=== PATIENT | female | born 1960 | race African-American/Black ===

== ENCOUNTER 2022-03-19 17:02 | Inpatient (IN) | payer OTHER ==
[~2022-03-19] VITALS: Ht 167.6 cm; Wt 60.8 kg
[2022-03-19] MEDS ORDERED: IV NORMAL SALINE 1000 ML BAG IV ONE (17:15)
[2022-03-19] MEDS ORDERED: ACETAMINOPHEN ES 500 MG TABLET PO ONE (17:15)
[2022-03-19] MEDS ORDERED: ACETAMINOPHEN ES 500 MG TABLET ONE (17:24)
[2022-03-19 17:45] LABS: HEMATOCRIT 38.7 % (31.2-41.9); MEAN CORPUSCULAR HEMOGLOBIN 26.4 uug (24.7-32.8); MEAN CORPUSCULAR VOLUME 80.5 fL (75.5-95.3); PLATELET COUNT (AUTO) 176 K/uL (179-408)
[2022-03-19 17:55] LABS: CARBON DIOXIDE 29 mmol/L (21-32); CHLORIDE 94 mmol/L (98-107); CREATININE 1.1 mg/dL (0.6-1.3); POTASSIUM 3.3 mmol/L (3.5-5.1); UREA NITROGEN, BLOOD 14 mg/dL (7-18)
[2022-03-19 18:00] LABS: GLUCOSE 301 mg/dL (74-106)
[2022-03-19 18:09] LABS: ALANINE AMINOTRANSFERASE 19 U/L (14-59); ALKALINE PHOSPHATASE 105 U/L (50-136); ASPARTATE AMINOTRANSFERASE 6 U/L (15-37); BILIRUBIN,DIRECT 0.1 mg/dL (0.0-0.2); BILIRUBIN,TOTAL 0.5 mg/dL (0.2-1.0)
--- NOTE | 2022-03-19 19:12 | NUR ---
Received report from REZA Del Castillo.
[2022-03-19] MEDS ORDERED: CEFTRIAXONE 1 G in IV DEXTROSE 5% 50 ML IV ONE (19:15)
[2022-03-19] MEDS ORDERED: POTASSIUM BICARBONATE/CIT AC 25 MEQ TABLET.EFF PO ONE (19:15)
[2022-03-19] MEDS ORDERED: AZITHROMYCIN IV 500 MG in IV DEXTROSE 5% 250 ML IV ONE (19:15)
[2022-03-19] MEDS ORDERED: CEFTRIAXONE /D5W 50ML IVPB **ER PYXIS IV ONE (19:18)
[2022-03-19] MEDS ORDERED: AZITHROMYCIN 500MG/ D5W 250ML IVPB **ER PYXIS ONLY IV ONE (19:18)
[2022-03-19] MEDS ORDERED: POTASSIUM BICARBONATE/CIT AC 25 MEQ TABLET.EFF ONE (19:18)
[2022-03-19] MEDS ORDERED: IV NS 1000 ML 1,000 ML IV ONE (19:30)
--- NOTE | 2022-03-19 19:34 | NUR ---
The compleetion time for 1st L of NS given at 1721 is not documented because it was completed before my shift.
--- NOTE | 2022-03-19 21:05 | NUR ---
Spoke to Lin, trimming caser from [employer], she stated that patient is authorized to stay at [facility].
--- NOTE | 2022-03-19 21:09 | NUR ---
Called [facility] for panal call. Dr. Richard home school liaison officer.
[2022-03-19] MEDS ORDERED: DEXTROSE 50% 50 ML DISP.SYRIN IV PRN (21:15)
[2022-03-19] MEDS ORDERED: REMEDY ESSENTIAL ZINC PASTE 113 GM TP PRN (21:15)
[2022-03-19] MEDS ORDERED: ONDANSETRON 4 MG/2 ML VIAL IV PRN (21:15)
[2022-03-19] MEDS ORDERED: MAGNESIUM HYDROXIDE 30 ML LIQUID UDC PO PRN (21:15)
[2022-03-19] MEDS ORDERED: INSU100V39 SQ (21:16)
[2022-03-19] MEDS ORDERED: GABA800T11 PO (21:16)
[2022-03-19] MEDS ORDERED: OXYCODONE/APAP 5-325 MG TABLET ONE (21:42)
[2022-03-19] MEDS ORDERED: MAGNESIUM SULFATE/D5W 100 ML ONE (21:43)
[2022-03-19] MEDS ORDERED: MAGNESIUM SULFATE/D5W 300 ML ONE (21:43)
[2022-03-19] MEDS: MAGNESIUM SULFATE/D5W 100 ML IV SCH ×4 (21:45→23:45)
[2022-03-19] MEDS ORDERED: OXYCODONE/APAP 5-325 MG TABLET PO ONE (21:45)
[2022-03-19 22:07] LABS: *BILIRUBIN,URIN NEGATIVE (NEGATIVE); *BLOOD, URINE 2+ (NEGATIVE); *CLARITY,URINE CLOUDY (CLEAR); *COLOR,URINE YELLOW (YELLOW); *KETONES,URINE 1+ (NEGATIVE); *UROBILINOGEN,URINE 0.2 E.U./dl (NORMAL); LEUKOCYTE ESTERASE ,URINE 3+ (NEGATIVE); NITRITE, URINE NEGATIVE (NEGATIVE)
[2022-03-19 22:23] LABS: UGLUCOSE 3+ (NEGATIVE)
--- NOTE | 2022-03-19 23:19 | NUR ---
Report given to REZA Lopes.
[2022-03-19] MEDS ORDERED: ENOXAPARIN SODIUM 40 MG/0.4 ML DISP.SYRIN SQ ONE (23:54)
--- NOTE | 2022-03-20 00:03 | NUR ---
RECEIVED REPORT FROM AM NURSE MIKAELA PT IS ALERT AND ORIENTED X4 HAS AN IV 20G RT HAND DR HURD ORDERED NS AT 75M;/HR PT TOLERATING WELL NO SIGNS OF INFILTRATION NOTED. PT HAS 022L NC SAT AT 99%. PT HAS MEDICATION ORDERED BUT HAS A SLIGHT TEMPERATURE OF 100.4 GAVE 2 TABS OF TYLENOL. PT PLATELETS ARE LOW 176 AND PT DENIES BUT PT HAS SPOTS ALONG WITH SCABS ALL OVER HER BODY AND SCABS ON .ARMS LEGS AND LEFT KNEE. PT HAS AM LABS ORDERED. PT HAS OVER $600 DOLLARS IN [place] BUT DECIDED TO KEEP WITH HER WILL GIVE TO HER SON IN THE MORNING.
--- NOTE | 2022-03-20 00:15 | NUR ---
Pt. admitted to TELE RM 330, under care of Dr. Richard. Belongs List completed REZA Cottrell aware of patient's arrival to unit.
[2022-03-20 00:36] LABS: BACTERIA,URINE MODERATE /HPF (NONE SEEN); SQUAMOUS EPITHELIAL CELL,UR MODERATE /HPF (NONE SEEN); WBC,URINE TNTC /HPF (0-3)
[2022-03-20 00:46] VITALS: BP 109/65
[2022-03-20] MEDS: IV NS 1000 ML 1,000 ML IV PRN ×2 (02:57→14:33)
[2022-03-20 04:05] VITALS: BP 150/68
[2022-03-20] MEDS: ACETAMINOPHEN 325 MG TABLET PO PRN ×2 (05:55→20:55)
[2022-03-20] MEDS ORDERED: BENZOCAINE/MENTH/CETYLPYRD LOZENGE MM PRN (06:30)
[2022-03-20] MEDS: PANTOPRAZOLE SODIUM 40 MG TABLET.DR PO SCH (07:03)
[2022-03-20] MEDS: GUAIFENESIN/DEXTROMETHORPHAN 5 ML UDC PO PRN ×2 (07:04→23:15)
[2022-03-20 07:15] LABS: HEMATOCRIT 31.4 % (31.2-41.9); MEAN CORPUSCULAR HEMOGLOBIN 26.3 uug (24.7-32.8); PLATELET COUNT (AUTO) 150 K/uL (179-408)
[2022-03-20] MEDS: BLOOD SUGAR DIAGNOSTIC 1 EACH STRIP VI SCH ×4 (07:20→21:00)
[2022-03-20 07:50] LABS: CREATININE 0.9 mg/dL (0.6-1.3); MAGNESIUM 2.1 mg/dL (1.8-2.4); PHOSPHOROUS 1.9 mg/dL (2.5-4.9); POTASSIUM 3.3 mmol/L (3.5-5.1)
[2022-03-20] MEDS: INSULIN REGULAR, HUMAN 300 UNIT/3 ML VIAL SQ PRN ×4 (08:13→22:55)
--- NOTE | 2022-03-20 08:16 | NUR ---
RECEIVED PATIENT IN BED AWAKE ALERT AND ORIENTED DENIES PAIN OR DISCOMFORTS AT THIS TIME TEMP RECHECKED AND ITS 99.5 INSULIN COVERAGE PER SLIDING SCALE DENIES DISCOMFORTS CALL LIGHTS AND PERSONAL BELONGINGS ARE WITHIN EASY REACH AT THIS TIME WILL CONTINUE TO OBSERVE.
[2022-03-20] MEDS ORDERED: AZITHROMYCIN IV 500 MG in IV DEXTROSE 5% 250 ML IV SCH (09:00)
[2022-03-20] MEDS ORDERED: CEFTRIAXONE 1 G in IV DEXTROSE 5% 50 ML IV SCH (09:00)
[2022-03-20] MEDS ORDERED: POTASSIUM CHLORIDE 20 MEQ TAB.PRT.SR PO ONE (09:45)
--- NOTE | 2022-03-20 10:06 | NUR ---
POTASSIUM LEVEL IS 3.3 WITH REPLACEMENT ORDER AND NOTED
[2022-03-20] MEDS ORDERED: CHLO25TA2 PO (11:22)
[2022-03-20] MEDS ORDERED: PARO40TA4 PO (11:22)
[2022-03-20] MEDS ORDERED: ZOLP5TAB8 PO (11:22)
[2022-03-20] MEDS ORDERED: METO50TA16 PO (11:22)
[2022-03-20] MEDS ORDERED: BACL10TA PO (11:22)
[2022-03-20] MEDS ORDERED: INSU100I4 SQ (11:22)
[2022-03-20 11:39] VITALS: BP 102/57
[2022-03-20] MEDS ORDERED: INSU100I19 SQ (11:48)
[2022-03-20] MEDS: GABAPENTIN 400 MG CAPSULE PO SCH ×2 (12:57→16:12)
[2022-03-20 15:43] VITALS: BP 121/66
[2022-03-20] MEDS ORDERED: SODIUM PHOSPHATE MM 15 MMOL in IV NORMAL SALINE 250 ML IV ONE (16:00)
--- NOTE | 2022-03-20 18:06 | NUR ---
SODIUM PHOS IN PROGRESS ORDERED DENIES PAIN OR DISCOMFORTS NOT IN DISTRESS AT THIS TIME.
[2022-03-20] MEDS: CEFTRIAXONE 1 G in IV DEXTROSE 5% 50 ML IV SCH (20:38)
[2022-03-20] MEDS: AZITHROMYCIN IV 500 MG in IV DEXTROSE 5% 250 ML IV SCH (20:38)
[2022-03-20] MEDS: ENOXAPARIN SODIUM 40 MG/0.4 ML DISP.SYRIN SQ SCH ×2 (20:40)
[2022-03-20 21:05] VITALS: BP 119/65
[2022-03-20] MEDS: INSULIN GLARGINE,HUM 300 UNITS/3 ML CARTRIDGE SQ SCH (22:57)
[2022-03-20] MEDS ORDERED: HYDROMORPHONE 1 MG/1 ML DISP.SYRIN IV PRN (23:00)
[2022-03-21 00:30] VITALS: BP 114/50
[2022-03-21 04:10] VITALS: BP 135/75
[2022-03-21] MEDS: BLOOD SUGAR DIAGNOSTIC 1 EACH STRIP VI SCH ×4 (06:20→20:49)
[2022-03-21] MEDS: INSULIN REGULAR, HUMAN 300 UNIT/3 ML VIAL SQ PRN ×4 (06:21→20:45)
[2022-03-21] MEDS: PANTOPRAZOLE SODIUM 40 MG TABLET.DR PO SCH (06:49)
[2022-03-21 07:32] LABS: HEMATOCRIT 32.5 % (31.2-41.9); MEAN CORPUSCULAR HEMOGLOBIN 26.5 uug (24.7-32.8); MEAN CORPUSCULAR VOLUME 81.3 fL (75.5-95.3); PLATELET COUNT (AUTO) 142 K/uL (179-408)
--- NOTE | 2022-03-21 07:45 | NUR ---
SHIFT NOTES; RECEIVED REPORT AM NURSE PT IS ALERT AND ORIENTED X4 PT WAS CRYING DURING SHIFT CALLED DR SALEH ORDERED .5MG DILAUDID Q4H NO SIGNS OF DISTRESS NOTED MEDICATION GIVEN FOR PAIN PT SLEPT AFTERWARD. PT AM BLOOD SUGAR 124 NO SIGNS OF DIABETIC REACTION NO COVERAGE REQUIRED. PT HS BLOOD IS 261 GAVE 30 UNITS LANTUS AND 6 UNITS REG NO SIGNS OF ADVERSE REACTION NOTED. PT WAS GIVEN GIVEN COUGH SYRUP FOR COUGH PT PLT ARE LOW 150 FROM 176 MEDICATION HELD LOVENOX. WILL ENDORSE TO AM NURSE. FALL AND SAFETY MAINTAINED WILL CONTINUE TO MONITOR.
[2022-03-21 07:56] LABS: BILIRUBIN,TOTAL 0.2 mg/dL (0.2-1.0); CREATININE 0.7 mg/dL (0.6-1.3); POTASSIUM 3.5 mmol/L (3.5-5.1); TOTAL PROTEIN, SERUM 6.9 g/dL (6.4-8.2)
[2022-03-21] MEDS: GUAIFENESIN/DEXTROMETHORPHAN 5 ML UDC PO PRN (08:08)
[2022-03-21] MEDS: GABAPENTIN 400 MG CAPSULE PO SCH ×3 (09:23→16:52)
[2022-03-21 09:26] LABS: THYROID STIMULATING HORMONE 0.257 mIU/mL (0.358-3.740)
[2022-03-21] MEDS ORDERED: MAGNESIUM HYDROXIDE 30 ML LIQUID UDC PO PRN (09:30)
[2022-03-21] MEDS: ACETAMINOPHEN 325 MG TABLET PO PRN ×2 (10:53→18:34)
[2022-03-21] MEDS: IV NS 1000 ML 1,000 ML IV PRN (10:53)
[2022-03-21] MEDS ORDERED: IPRATROPIUM BROMIDE 0.5 MG/2.5 ML NEBU NEB PRN (11:00)
[2022-03-21] MEDS ORDERED: ALBUTEROL SULFATE 2.5 MG/3 ML NEBU NEB PRN (11:00)
--- NOTE | 2022-03-21 11:18 | NUR ---
DR VERDUZCO HERE TO SEE PATIENT WITH NEW ORDERS AND NOTED
[2022-03-21 12:00] VITALS: BP 157/77
--- NOTE | 2022-03-21 13:12 | NUR ---
PATIENT IS COMPLAINING THAT THE IV ON THE TOP OF RIGHT HANG IS UNCOMFORTABLE ATTEMPT TO INSERT FAILED MD AWARE WITH ORDER TO INSERT MIDLINE AND NOTED
--- NOTE | 2022-03-21 13:14 | NUR ---
MID LINE INSERTED TO HER RIGHT UPPER ARM GAUGE 18 AND CONTINUE WITH IVF ORDERED.
[2022-03-21 16:00] VITALS: BP 109/71
[2022-03-21] MEDS ORDERED: NEUTRA PHOS PACKET PO ONE (17:00)
--- NOTE | 2022-03-21 18:00 | NUR ---
AWAKE ALERT ORIENTED REQUIRES MAX ASSIST FOR ADL ASSISTED WITH BATHING AND CHANGING IVF IN PROGRESS ORDERED MIDLINE REMAINS INTACT MADE COMFORTABLE WILL CONTINUE TO OBSERVE.
[2022-03-21 20:00] VITALS: BP 140/84
[2022-03-21] MEDS: AZITHROMYCIN IV 500 MG in IV DEXTROSE 5% 250 ML IV SCH (20:30)
[2022-03-21] MEDS: ENOXAPARIN SODIUM 40 MG/0.4 ML DISP.SYRIN SQ SCH (20:40)
[2022-03-21] MEDS: INSULIN GLARGINE,HUM 300 UNITS/3 ML CARTRIDGE SQ SCH (20:46)
[2022-03-22] VITALS: BP 146/54
[2022-03-22] MEDS: CEFTRIAXONE 1 G in IV DEXTROSE 5% 50 ML IV SCH ×2 (00:26→20:51)
--- NOTE | 2022-03-22 04:30 | NUR ---
AAOx4 Resting in bed at beginning of shift. All needs attended. VSS No acute distress noted. Tolerated po meds well. OOB to bedside commode. Voiding well without difficulty. VSS. Accucheck @ 2100 was 177. On lantus plus 3units given as coverage. IV ABT's given as scheduled. On 2L via nasal cannula, pulse ox 93%. Patient having on & off cough, Robitussin given.Will monitor patient.
[2022-03-22 05:48] VITALS: BP 166/95
[2022-03-22] MEDS: PANTOPRAZOLE SODIUM 40 MG TABLET.DR PO SCH (06:04)
[2022-03-22] MEDS: BLOOD SUGAR DIAGNOSTIC 1 EACH STRIP VI SCH ×4 (06:33→20:52)
[2022-03-22 07:02] LABS: HEMATOCRIT 30.7 % (31.2-41.9); MEAN CORPUSCULAR HEMOGLOBIN 26.5 uug (24.7-32.8); MEAN CORPUSCULAR VOLUME 80.8 fL (75.5-95.3); PLATELET COUNT (AUTO) 120 K/uL (179-408)
--- NOTE | 2022-03-22 07:24 | NUR ---
Patient compliant with meds. Tolerated well. IV ABT given as well. Refused to have pictures taken on her scabs all over., otherwise patient took meds without problem.
[2022-03-22 07:28] LABS: CREATININE 0.7 mg/dL (0.6-1.3); MAGNESIUM 1.9 mg/dL (1.8-2.4); PHOSPHOROUS 2.2 mg/dL (2.5-4.9); POTASSIUM 3.7 mmol/L (3.5-5.1)
[2022-03-22] MEDS: INSULIN REGULAR, HUMAN 300 UNIT/3 ML VIAL SQ PRN ×4 (07:55→20:47)
[2022-03-22] MEDS: GABAPENTIN 400 MG CAPSULE PO SCH ×3 (08:59→16:48)
--- NOTE | 2022-03-22 09:00 | NUR ---
RECEIVED PATIENT AWAKE ALERT AND ORIENTED DENIES PAIN OR DISCOMFORTS AT THIS TIME REMAIN ON IVF VIA MIDLINE RIGHT UPPER EXT ORDERED WITH NO S/S OF INFILTERATION AT THIS TIME CALL LIGHT AND PERSONAL BELONGINGS ARE WITHIN EASY REACH WILL CONTINUE TO OBSERVE.
[2022-03-22] MEDS: IV NS 1000 ML 1,000 ML IV PRN (09:03)
[2022-03-22] MEDS: GUAIFENESIN/DEXTROMETHORPHAN 5 ML UDC PO PRN ×2 (10:13→20:49)
[2022-03-22] MEDS: ACETAMINOPHEN 325 MG TABLET PO PRN ×2 (10:13→20:49)
--- NOTE | 2022-03-22 10:13 | NUR ---
PATIENT C/O HAVING A HEADACHE AND COUGH MEDICATED WITH TYLENOL AND ROBITUSSIN ORDERED PATIENT MADE COMFORTABLE WILL OBSERVE.
--- NOTE | 2022-03-22 10:15 | NUR ---
DR VERDUZCO HERE TO SEE PATIENT WITH NO NEW ORDERS AT THIS TIME
[2022-03-22 11:46] VITALS: BP 138/90
[2022-03-22] MEDS ORDERED: SODIUM PHOSPHATE MM 15 MMOL in IV NORMAL SALINE 250 ML IV ONE (16:00)
--- NOTE | 2022-03-22 17:54 | NUR ---
PHOS LEVEL IS 2.2 AND SODIUM IS 137 WITH ORDER FOR SODIUM PHOS ORDERED.
--- NOTE | 2022-03-22 19:00 | NUR ---
RECEIVED REPORT FROM TEMI COBB.
[2022-03-22 20:00] VITALS: BP 143/91
[2022-03-22] MEDS: AZITHROMYCIN IV 500 MG in IV DEXTROSE 5% 250 ML IV SCH (20:29)
[2022-03-22] MEDS: ENOXAPARIN SODIUM 40 MG/0.4 ML DISP.SYRIN SQ SCH (20:30)
[2022-03-22] MEDS: INSULIN GLARGINE,HUM 300 UNITS/3 ML CARTRIDGE SQ SCH (20:48)
[2022-03-23] VITALS: BP 130/82
[2022-03-23] MEDS: GUAIFENESIN/DEXTROMETHORPHAN 5 ML UDC PO PRN (01:46)
[2022-03-23 04:00] VITALS: BP 171/99
[2022-03-23] MEDS: IV NS 1000 ML 1,000 ML IV PRN (04:18)
[2022-03-23] MEDS: ACETAMINOPHEN 325 MG TABLET PO PRN (04:51)
[2022-03-23] MEDS: PANTOPRAZOLE SODIUM 40 MG TABLET.DR PO SCH (06:38)
--- NOTE | 2022-03-23 07:20 | NUR ---
REPORT GIVEN TO JO COBB.
--- NOTE | 2022-03-23 07:30 | NUR ---
RECEIVED PATIENT IN ROOM AWAKE ALERT AND ORIENTED CONCERNED RE SOME FAMILY ISSUES WITH HER CHILDREN PATIENT REASSURED AND ENCOURAGED TO TRY TO RELAX.SHE IS ON O2 WITH NO S/S OF SHORTNESS OF BREATH AT THIS TIME.REMAIN ON IVF WITH NO S/S OF INFILTERATION ON SITE MID LINE REMAINS INTACT AND PATENT.CALL LIGHT AND PERSONAL BELONGINGS ARE WITHIN EASY REACH WILL CONTINUE TO OBSERVE.
[2022-03-23] MEDS: BLOOD SUGAR DIAGNOSTIC 1 EACH STRIP VI SCH ×2 (07:44→12:17)
[2022-03-23] MEDS: INSULIN REGULAR, HUMAN 300 UNIT/3 ML VIAL SQ PRN (07:52)
[2022-03-23] MEDS: GABAPENTIN 400 MG CAPSULE PO SCH ×2 (08:41→12:03)
[2022-03-23 11:10] VITALS: BP 157/96
[2022-03-23] MEDS ORDERED: AZIT250T13 PO (12:17)
[2022-03-23] MEDS ORDERED: AMOX-430 PO (12:17)
--- NOTE | 2022-03-23 12:30 | NUR ---
PATIENT SEEN BY DR TRONCOSO WITH NEW ORDERS TO DISCHARGE PATIENT HOME TODAY AND NOTED PATIENT AWARE AND STATED THAT HER SON ALINA WILL BE ABLE TO PICK HER UP THIS AFTERNOON.
--- NOTE | 2022-03-23 15:00 | NUR ---
PATIENT DISCHARGED PICKED UP BY HER SON IN SATISFACTORY CONDITION PATIENTS SAT ON ROOM AIR IS 95 PERCENT NO SOB AT THIS TIME.DISCHARGE INSTRUCTIONS GIVEN PATIENT INSTRUCTED TO CALL HER PRIMARY DOCTOR FOR A FOLLOW UP APPOINTMENT WITHIN THE NEXT ONE WEEK,CURATORIAL SPECIALIST HER PRESCRIPTIONS FROM [facility] IT WAS ALREADY ORDERED ELECTRONICALLY AND SHE EXPRESSED UNDERSTANDING.
== END 2022-03-23 15:00 | disposition home or self-care (01) | DRG 871 ==
LOC: ER 17:10 → TELE3 21:00 → MEDSURG3 03-23 09:01
PROVIDERS: ADMIT Internal Medicine; ATTEND Internal Medicine
PROC: 05H533Z Insertion of Infusion Device into Right Subclavian Vein, Percutaneous Approach (ICD-10-PCS; principal; 2022-03-21)
PROC: B546ZZA Ultrasonography of Right Subclavian Vein, Guidance (ICD-10-PCS; 2022-03-21)
DX: A41.9 Sepsis, unspecified organism (principal); G92.8 Other toxic encephalopathy; J18.9 Pneumonia, unspecified organism; E87.1 Hypo-osmolality and hyponatremia; N39.0 Urinary tract infection, site not specified; D68.69 Other thrombophilia; E87.6 Hypokalemia; D63.8 Anemia in other chronic diseases classified elsewhere; E11.65 Type 2 diabetes mellitus with hyperglycemia; E11.40 Type 2 diabetes mellitus with diabetic neuropathy, unspecified; F32.A Depression, unspecified; G89.29 Other chronic pain; Z20.822 Contact with and (suspected) exposure to COVID-19; Z79.4 Long term (current) use of insulin; Z86.16 Personal history of COVID-19; Z87.891 Personal history of nicotine dependence; D50.9 Iron deficiency anemia, unspecified; F43.10 Post-traumatic stress disorder, unspecified; I10 Essential (primary) hypertension; Z91.198 Patient's noncompliance with other medical treatment and regimen for other reason; F41.9 Anxiety disorder, unspecified; Z74.09 Other reduced mobility; R53.1 Weakness; Z88.5 Allergy status to narcotic agent; Z90.710 Acquired absence of both cervix and uterus
CPT/HCPCS: 36415; 71045; 83550; 83605; 83735; 84100; 84443; 84481; 84484; 85025; 85730; 87040; 87400; 93005; A4663; A9150; G0378; J0456; J0696; J1170; J1650; J1815; J2405; J3475; J3490; J7040; J7050